=== PATIENT | female | born 1950 | race Caucasian/White ===

== ENCOUNTER → 2020-06-08 | Outpatient (CLI) | payer MEDICARE ==
[~2020-06-08] MED LIST: CATHETER FLUSH 10 ML SYR IV PRN; HOLD METFORMIN - RECEIVED CONTRAST 20 ML VIAL IV SCH; IOHEXOL 350 MG/ML 100 ML (OMNIPAQUE 350) VIAL IV ONE; NS 100 ML (IVPB) BAG IV ONE
[2020-06-08 13:54] LABS: SODIUM 136 MMOL/L (135-145)
[2020-06-08 13:55] LABS: ALANINE AMINOTRANSFERASE 17 U/L (0-55); ALBUMIN 4.5 GM/DL (3.2-4.5); ALKALINE PHOSPHATASE 81 U/L (40-136); BILIRUBIN,TOTAL 0.2 MG/DL (0.1-1.0); BUN/CREATININE RATIO 28; CALCIUM 9.3 MG/DL (8.5-10.1); CARBON DIOXIDE 21 MMOL/L (21-32); CHLORIDE 101 MMOL/L (98-107); CREATININE SERUM 0.89 MG/DL (0.60-1.30); GFR ESTIMATED > 60; GLUCOSE 88 MG/DL (70-105); POTASSIUM 4.5 MMOL/L (3.6-5.0); TOTAL PROTEIN 7.6 GM/DL (6.4-8.2)
--- NOTE | 2020-06-08 14:57 | Diagnostic Imaging Report ---
CT CHEST W TECHNIQUE: Multiple contiguous axial images were obtained through the chest with the use of intravenous contrast. All CT scans use one or more of the following dose optimizing techniques: automated exposure control, MA and/or KvP adjustment based on a patient size and exam type, or iterative reconstruction. INDICATION: Abnormal chest x-ray. COMPARISON: None available. FINDINGS: Lungs and airway: No endoluminal nodule within the trachea. No pulmonary mass or consolidation. There is a calcified 9 mm nodule in the superior segment of left lower lobe that is due to a benign calcified granuloma. There are no pulmonary nodules that would be suspicious for clinically active lung cancer or metastatic disease. Pleura: No pleural effusion or pneumothorax. Heart and mediastinum: Thyroid is normal. No supraclavicular or axillary lymphadenopathy. No mediastinal, hilar or juxtaphrenic lymphadenopathy. The heart is normal in size without pericardial effusion. Normal caliber thoracic aorta. Four-vessel branching pattern of the aortic arch with the vertebral artery arising from the aortic arch. There is [id number] luminal narrowing of the left subclavian artery but since patient's vertebral artery arises from the aortic arch, subclavian steal would not be of concern in this patient as her anatomy would not allow it. Upper abdomen: No concerning abnormality in the upper abdomen. Musculoskeletal: No acute or healing rib fractures. No concerning focal osseous lesions. IMPRESSION: 1. There is a benign calcified 9 mm granuloma in the left lower lobe. 2. No abnormality in the chest that would suggest infection or neoplasm. Dictated by: Dictated on workstation # [id number]
== END ==
LOC: RAD FS 13:15
PROVIDERS: ATTEND Nurse Practitioner
DX: J84.10 Pulmonary fibrosis, unspecified (principal); R93.89 Abnormal findings on diagnostic imaging of other specified body structures; I10 Essential (primary) hypertension
CPT/HCPCS: 36415; 71260; 80053

== ENCOUNTER → 2022-05-15 | Outpatient (CLI) | payer MEDICARE ==
--- NOTE | 2022-05-15 14:18 | Diagnostic Imaging Report ---
MRI LT UPPER EXT JOINT W/O TECHNIQUE: Multiplanar, multisequence MR imaging of the left shoulder was performed without contrast. COMPARISON: None available. INDICATION: Left shoulder pain with fall two weeks ago. FINDINGS: Rotator cuff: Supraspinatus, infraspinatus, teres minor and subscapularis are all intact.. However, there is an avulsion fracture of the greater tuberosity at the supraspinatus insertion. Please see the below bone section for more details. No rotator cuff muscle atrophy. Glenoid labrum: No chondrolabral separation or paralabral cyst. Long head of biceps: Long head of biceps is normally positioned within the bicipital groove. The intracapsular segment is intact. Bones and cartilage: Nondisplaced fracture is present in the anterior aspect of the greater tuberosity. A small amount of bone marrow edema is present throughout the proximal humerus. No glenohumeral chondromalacia. The acromioclavicular joint is normal in alignment without significant degenerative change. Soft tissues: Moderate glenohumeral joint effusion. No MRI findings to suggest adhesive capsulitis. Fluid is present in the subacromial and subdeltoid bursa. IMPRESSION: 1. Subacute nondisplaced fracture in the anterior aspect of the greater tuberosity. 2. No rotator cuff tear. The supraspinatus remains intact upon the nondisplaced fracture of the greater tuberosity. 3. Long head of biceps is intact. 4. Moderate-sized glenohumeral joint effusion is likely reactive in nature from recent trauma. Dictated by: Dictated on workstation # [id number]
== END ==
LOC: RAD 09:44
DX: S42.202A Unspecified fracture of upper end of left humerus, initial encounter for closed fracture (principal); X58.XXXA Exposure to other specified factors, initial encounter
CPT/HCPCS: 73221

== ENCOUNTER → 2022-05-30 | Outpatient (CLI) | payer MEDICARE ==
--- NOTE | 2022-05-30 13:11 | Diagnostic Imaging Report ---
INDICATION: Nondisplaced fracture of the greater tuberosity, fracture followup. COMPARISON: MRI dated 04/14/2022. TECHNIQUE: 3 radiographs of the left shoulder dated 05/30/2022. FINDINGS: The acromioclavicular joint is unremarkable. Serpiginous lucencies are noted involving the proximal left humerus, particularly vertically oriented lucency involving the greater tuberosity. This corresponds to recently noted fractures. Sclerosis is seen within this region with mild periosteal reaction. Alignment appears stable without significant displacement. No new fracture or dislocation. No destructive osseous process. Subacromial space is well-maintained. IMPRESSION: Healing comminuted proximal left humeral fracture, predominantly involving the greater tuberosity remaining in stable alignment without new acute osseous abnormality. Dictated by: Dictated on workstation # [id number]
== END ==
LOC: RAD FS 09:24
PROVIDERS: ATTEND Nurse Practitioner
DX: S42.255D Nondisplaced fracture of greater tuberosity of left humerus, subsequent encounter for fracture with routine healing (principal)
CPT/HCPCS: 73030